=== PATIENT | female | born 1970 | race Caucasian/White ===

== ENCOUNTER 2017-12-17 00:17 | Outpatient (CLI) | payer MEDICAID, SELFPAY ==
[2017-12-17 09:26] LABS: Abs Immature Grans 0.01 k/cumm (0.0-0.09); Absolute Basophil Count 0.02 k/cumm (0.0-0.2); Absolute Eosinophil Count 0.13 k/cumm (0.0-0.7); Absolute Lymphocyte Count 1.46 k/cumm (1.2-3.4); Absolute Monocyte Count 0.49 k/cumm (0.11-0.7); Absolute Neutrophil Count 2.65 k/cumm (1.2-6.7); Basophils % 0.4; Eosinophils % 2.7; HCT 39.9 % (36.0-46.0); HGB 13.2 g/dL (12.0-15.5); Immature Grans % 0.2; Lymphocytes % 30.7; Mean Corp. HGB Concentration 33.1 g/dL (32.0-36.0); Mean Corpuscular Hemoglobin 32.4 pg (27.0-33.0); Mean Corpuscular Volume 97.8 fL (80-95); Mean Platelet Volume 9.9 fL (8.0-11.0); Monocytes % 10.3; Neutrophils % 55.7; Platelet Count 261 x1000/uL (130-400); RBC 4.08 m/cumm (4.00-5.20); RBC Distribution Width 12.2 % (11.7-14.6); White Blood Cell Count 4.76 k/cumm (4.4-10.8)
[2017-12-17 10:29] LABS: Folate 13.1 ng/mL (8.6-20.0)
== END 2017-12-17 00:37 ==
PROVIDERS: PCP Nurse Practitioner Family; Visit Provider Nurse Practitioner Family
DX: D64.9 Anemia, unspecified (principal)
CPT/HCPCS: 36415; 82746; 85025

== ENCOUNTER 2018-03-17 10:08 | Outpatient (REF) | payer MEDICAID, SELFPAY ==
--- NOTE | 2018-03-17 08:40 | PAPFT_PTH ---
PATIENT: Ariana Castaneda LOC: [facility] U#:[id number] AGE/SX: 48/F ROOM: RE03/17/[address]: Dulce Dunlap NP : 1970 BED: DIS: 03/17/2018 SPEC #: [id number] RECD: 03/17/18 17:46 STATUS: ESTEFANIA RESalvatore #: [id number] SIMONA: 03/17/18 08:[address]: Dulce Dunlap NP DEPT: [facility] Cytology RECD BY: Pushpa Smith ENTERED: 03/17/18 17:46 SP TYPE: PAPFT OTHR DR: Marilia Ortega, DIRECTOR ELECTRICAL ENGINEERING Tissues: 1 - CX/ENDOCX FOR PAP SMEARS Procedures: PAP THIN PREP/UVM Screening HPV DNA PROBE Comments: [id number]
== END 2018-03-17 10:28 ==
LOC: LBN 10:08
PROVIDERS: PCP Nurse Practitioner Family; Visit Provider Nurse Practitioner Women's Health
DX: Z12.4 Encounter for screening for malignant neoplasm of cervix (principal); Z11.51 Encounter for screening for human papillomavirus (HPV)
CPT/HCPCS: 88142; 87624

== ENCOUNTER 2018-03-20 15:28 | Outpatient (REF) | payer MEDICAID, SELFPAY ==
[2018-03-23 15:22] LABS: Chlamydia Result Negative; GC Result Negative
== END 2018-03-20 15:48 ==
LOC: LBN 15:28
PROVIDERS: PCP Nurse Practitioner Family; Visit Provider Nurse Practitioner Family
DX: Z11.3 Encounter for screening for infections with a predominantly sexual mode of transmission (principal)
CPT/HCPCS: 87491; 87591

== ENCOUNTER 2018-04-25 00:17 | Outpatient (CLI) | payer MEDICAID, SELFPAY ==
--- NOTE | 2018-04-25 15:59 | DI.MAMMO_ITS ---
SYMPTOM/DIAGNOSIS: SCREENING, Z12.31 MAMMOGRAMS: Mammograms were interpreted according to the usual protocol including computer analysis with CAD system, tomosynthesis and C view imaging. Comparison is made with 2018. The breasts are composed of extremely dense fibroglandular tissue, breast density, category D. No suspicious masses or suspicious microcalcifications are visible. There has been no significant change. IMPRESSION: Category 1, negative mammogram. Yearly screening mammography is recommended. [facility] ASSESSMENT OF FINDINGS: Negative. Category 1. Patient will receive a letter notifying them of these results. BI-RADS category D. The breasts are extremely dense, which lowers the sensitivity of mammography.
== END 2018-04-25 00:37 ==
PROVIDERS: PCP Nurse Practitioner Family; Visit Provider Nurse Practitioner Family
DX: Z12.31 Encounter for screening mammogram for malignant neoplasm of breast (principal)
CPT/HCPCS: 77063; 77067

== ENCOUNTER 2018-10-28 00:35 | Outpatient (CLI) | payer MEDICAID, SELFPAY ==
[2018-10-28 11:29] LABS: ALT 27 U/L (12-78); AST 20 U/L (15-37); Albumin 3.8 g/dL (3.4-5.0); Alkaline Phosphatase 47 U/L (46-116); Anion Gap 11.2 mmol/L (3-11); BUN 17 mg/dL (7-18); Bilirubin, Total 1.4 mg/dL (0.2-1.0); CO2 26.8 mmol/L (21.0-32.0); Calcium 8.4 mg/dL (8.5-10.1); Calculated LDL 88 mg/dL; Chloride 105 mmol/L (98-107); Cholesterol 184 mg/dL (50-200); Glucose 89 mg/dL (70-100); HDL Cholesterol 88 mg/dL (40-60); Potassium 3.8 mmol/L (3.5-5.1); Sodium 143 mmol/L (136-145); Total Protein 6.6 g/dL (6.4-8.2); Triglyceride 43 mg/dL (30-150)
[2018-10-29 13:05] LABS: Hemoglobin A1C 5.3 % (4.5-6.2)
[2018-10-30 13:01] LABS: IgA 101 mg/dL (85-499); Interpretation SEE COMMENTS; Tissue Transglutaminase IgA <1.2 U/mL (<4.0)
== END 2018-10-28 00:55 ==
PROVIDERS: PCP Nurse Practitioner Family; Visit Provider Nurse Practitioner Family
DX: K90.49 Malabsorption due to intolerance, not elsewhere classified (principal); Z00.00 Encounter for general adult medical examination without abnormal findings
CPT/HCPCS: 36415; 80053; 80061; 82784; 83516; 83721; 83036

== ENCOUNTER 2019-04-23 16:30 | Outpatient (REF) | payer MEDICAID, SELFPAY ==
[2019-04-25 13:52] LABS: Chlamydia Result Negative (Negative); GC Result Negative (Negative)
== END 2019-04-23 16:50 ==
LOC: LBN 16:30
PROVIDERS: PCP Nurse Practitioner Family; Visit Provider Nurse Practitioner Women's Health
DX: Z11.3 Encounter for screening for infections with a predominantly sexual mode of transmission (principal)
CPT/HCPCS: 87491; 87591

== ENCOUNTER 2019-04-25 02:10 | Outpatient (CLI) | payer MEDICAID, SELFPAY ==
--- NOTE | 2019-04-25 08:10 | DI.US_ITS ---
EXAM: US PELVIS TRANSVAGINAL CLINICAL HISTORY: AUB, IUD survellience, Z30.431, N93.9. TECHNIQUE: Ultrasound of the pelvic, both abdmonal and tranvaginal was performed using standard prot ocol. COMPARISON: PELVIS TRANSVAG from 01/25/2011 FINDINGS: KIDNEYS: Kidneys are symmetric in size. No evidence of renal calculi. No evidence of hydronephrosis. No renal mass or cyst identified. UTERUS: Position: Anteverted. Size: 8.8 x 4.7 x 5.9 cm Endometrium: 0.3 cm. Normal for patient's menstrual status. There is an intrauterine device in good position. Myometrium: Unremarkable. Cervix: Unremarkable except for small nabothian cysts. OVARIES: Right: 2.3 x 1.9 x 1.4 cm Cyst or mass: Small follicular cysts. Left: 4.5 x 1.5 x 1.8 cm Cyst or mass: Small follicular cysts. DOPPLER: Color: Symmetric and uniform flow to both ovaries. No hyperemia. Duplex: Normal ovarian arterial waveforms visualized. CUL-DE-SAC: Free fluid: None. IMPRESSION: 1. Normal sonographic appearance of the kidneys. 2. Normal-appearing uterus with endometrial stripe within normal limits. Intrauterine device in good position. 3. Unremarkable bilateral ovaries.
[2019-04-25 10:18] LABS: TSH (W/Ref FT4) 1.14 uIU/mL (0.36-3.74)
== END 2019-04-25 02:30 ==
PROVIDERS: PCP Nurse Practitioner Family; Visit Provider Nurse Practitioner Women's Health
DX: N93.9 Abnormal uterine and vaginal bleeding, unspecified (principal); N83.01 Follicular cyst of right ovary; N83.02 Follicular cyst of left ovary; Z30.431 Encounter for routine checking of intrauterine contraceptive device
CPT/HCPCS: 36415; 76830; 76856; 84443

== ENCOUNTER 2019-04-27 02:10 | Outpatient (CLI) | payer MEDICAID, SELFPAY ==
--- NOTE | 2019-04-27 07:45 | DI.MAMMO_ITS ---
EXAM: MAMMO SCREENING CLINICAL HISTORY: Screening, Z12.39 TECHNIQUE: Mammograms were interpreted according to the usual protocol including computer analysis w [employer] CAD system, tomosynthesis and C-view imaging. COMPARISON: April 2018 FINDINGS: Breasts are very dense. No dominant mass or clumped microcalcification is identified in either breas t. Current examination is compared with previous examinations including April 2018 and there has been no gross interval change in appearance in comparison with the previous studies. IMPRESSION: No specific evidence of malignancy at this time. Routine screening examinations are suggested at year ly intervals in this age group according the ACS/ACR guidelines. Category 1, breast density category D. BI-RADS Cat 1 - Negative Breast Density - Category D - Extremely dense
== END 2019-04-27 02:30 ==
PROVIDERS: PCP Nurse Practitioner Family; Visit Provider Nurse Practitioner Women's Health
DX: Z12.31 Encounter for screening mammogram for malignant neoplasm of breast (principal)
CPT/HCPCS: 77063; 77067

== ENCOUNTER 2020-09-01 10:04 | Outpatient (REF) | payer MEDICAID, SELFPAY ==
--- NOTE | 2020-09-01 09:45 | PAPFT_PTH ---
PATIENT: Ariana Castaneda LOC: [facility] U#:[id number] AGE/SX: 50/F ROOM: RE09/01/[address]: KWADWO Chaudhry : 1970 BED: DIS: 09/01/2020 SPEC #: [id number] RECD: 09/01/20 12:34 STATUS: NATArgelia REQ #: [id number] SIMONA: 09/01/20 09:[address]: Esperanza Valentine DEPT: [facility] Cytology RECD BY: Pushpa Smith ENTERED: 09/01/20 12:34 SP TYPE: PAPFT OTHR DR: KWADWO Cannon Tissues: 1 - CX/ENDOCX FOR PAP SMEARS Procedures: PAP THIN PREP/UVM Screening HPV DNA PROBE Comments: [id number]
== END 2020-09-01 10:05 | disposition home or self-care (01) ==
LOC: LBN 10:04
PROVIDERS: PCP Nurse Practitioner Family; Visit Provider Nurse Practitioner Family
DX: Z12.4 Encounter for screening for malignant neoplasm of cervix (principal); Z11.51 Encounter for screening for human papillomavirus (HPV)
CPT/HCPCS: 88142; 87624

== ENCOUNTER 2020-09-29 13:27 | Outpatient (CLI) | payer MEDICAID, SELFPAY ==
--- NOTE | 2020-09-29 12:45 | DI.US_ITS ---
Exam(s) US LOWER EXTREMITY VENOUS LT EXAM: US LOWER EXTREMITY VENOUS LT CLINICAL HISTORY: left lower extremity swelling M79.89 TECHNIQUE: Grayscale, color, and doppler imaging of the deep venous system of the left lower extremi ty was performed. COMPARISON: No exams were available for comparison FINDINGS: There is no evidence of intraluminal thrombus and there is normal compression and augmentation demons trated within the common femoral vein, femoral vein, and popliteal vein. In the ipsilateral calf the interrogated veins also exhibit normal compression/ augmentation properti es. The ipsilateral saphenofemoral junction is patent. On the anterior medial aspect of the calf-area of recent trauma, there is a complex collection measur ing 5.3 x 4.9 x 0.5 cm. Probably hematoma. Adjacent to this is a partially thrombosed varicose vein . IMPRESSION: 1. No evidence of DVT in the left lower extremity. 2. However, there is a partially thrombosed superficially located varicose vein in the region of an abnormal collection on the anteromedial ipsilateral calf, this collection measuring approximately 5.3 x 1.5 x 4.9 cm and probably hematoma. Appropriate follow-up is recommended. DATA REPOSITORY:
== END 2020-09-29 13:47 ==
PROVIDERS: PCP Nurse Practitioner Family; Visit Provider Nurse Practitioner Family
DX: I83.892 Varicose veins of left lower extremity with other complications
CPT/HCPCS: 93971

== ENCOUNTER 2020-11-05 02:03 | Outpatient (CLI) | payer MEDICAID, SELFPAY ==
[2020-11-05 16:05] LABS: Source Nasal/Nares
[2020-11-05 19:43] LABS: COVID-19 PCR Negative (Negative)
== END 2020-11-05 02:04 | disposition home or self-care (01) ==
PROVIDERS: PCP Nurse Practitioner Family; Visit Provider Surgery
DX: Z20.822 Contact with and (suspected) exposure to COVID-19 (principal); Z01.818 Encounter for other preprocedural examination
CPT/HCPCS: 87635

== ENCOUNTER 2020-11-07 10:52 | Day surgery (SDC) | payer MEDICAID, SELFPAY ==
--- NOTE | 2020-11-06 15:07 | W.PM.DSUDISC ---
Discharge Plan Discharge Details Attending Provider: Cristal Ochoa Primary Care Provider: Marilia Ortega Home Meds and New Rx's Prescriptions: No Action levonorgestrel 20 mcg/24 hr (5 years) intrauterine device 1 insert IY ONCE RF: 0 vitamin B complex [B Complex 1] Tablet 1 tab PO DAILY RF: 0 Saccharomyces boulardii [Daily Probiotic (S. boulardii)] 250 mg capsule 250 mg PO BID RF: 0
[2020-11-07 11:00] VITALS: BP 121/74; PULSE 53; RESP 16; TEMP 36.6; O2SAT 100
[2020-11-07] MEDS: Acetaminophen 500 MG TAB 1000 MG PO (11:19)
[2020-11-07] MEDS: Celecoxib 200 MG CAP PO (11:19)
--- NOTE | 2020-11-07 11:31 | W.ANESPRE ---
General Info Date of Service Date Performed: 11/07/20 Height: 5 ft 10 in Weight: 72.3 kg Body Mass Index (BMI): 22.8 Surgical Procedure: Operation Date: 11/07/20 12:10 Proposed Procedures Side Surgeon p Evacuation of Hematoma Left Cristal cOhoa MD Meds Allergies and Home Medications Allergies Allergy/AdvReac Type Severity Reaction Status Date / Time erythromycin base Allergy Severe sob Verified 11/07/20 11:10 latex Allergy Intermediate rash Verified 11/07/20 11:10 lactose AdvReac Intermediate Diarrhea Verified 11/07/20 11:10 Home Medication Medication Instructions Recorded levonorgestrel 20 mcg/24 hours (6 1 insert IY ONCE 03/20/18 yrs) 52 mg intrauterine device vitamin B complex 1 tab PO DAILY 10/18/18 Saccharomyces boulardii 250 mg 250 mg PO BID 11/04/20 capsule Current Visit Medications: Current Medications Generic Name Dose Route Start Last Admin Trade Name Freq PRN Reason Stop Dose Admin Acetaminophen 1,000 mg 11/07/20 06:00 11/07/20 11:19 Acetaminophen 500 Mg Tab PO 11/07/20 16:00 1,000 mg PREOP GITA Administration Celecoxib 200 mg 11/07/20 06:00 11/07/20 11:19 Celecoxib 200 Mg Cap PO 11/07/20 16:00 200 mg PREOP GITA Administration Hyoscyamine Sulfate 0.125 mg 11/06/20 15:06 Hyoscyamine 0.125 Mg Sl/Oral/Chew SL DIRECTED PRN Ringer's Solution 1,000 mls @ 80 mls/hr 11/07/20 06:00 IV 12/06/20 23:59 INFUSION GITA Cefazolin Sodium 2,000 mg/ 100 mls @ 200 mls/hr 11/07/20 06:00 Sodium Chloride IVPB 11/07/20 16:00 PREOP GITA IV Miscellaneous Supplies 1 each 11/07/20 06:00 Iv Access IV 12/06/20 23:59 DIRECTED GITA Ondansetron HCl 4 mg 11/06/20 15:06 Ondansetron 4 Mg/2 Ml Vial IVP Q4H PRN PRN Nausea / Vomiting Sodium Chloride 0 ml 11/07/20 06:00 Normal Saline Flush 10 Ml Syr IV 12/06/20 23:59 PRN PRN Sodium Chloride 0 ml 11/07/20 06:00 Normal Saline 10 Ml Vial IJ 12/06/20 23:59 DIRECTED PRN Sterile Water 0 ml 11/07/20 06:00 Water,Injection,Sterile 10 Ml Vial IJ 12/06/20 23:59 DIRECTED PRN PFSH Active Problems Active Problems: Problem Status Onset Code Hematoma of left lower extremity S80.12XA Gastrointestinal intolerance to foods K90.49 Medical History Medical History Abnormal uterine bleeding Menorrhagia; treated with IUD IUD surveillance Mirena IUD inserted 03/20/18 Surgical History Surgical History History of bilateral tubal ligation S/P MCL repair (~1987) Bilaterally, 1987 and 1989 S/P ovarian cystectomy (~2007) S/P right knee arthroscopy (~2010) S/P tonsillectomy and adenoidectomy Tobacco Smoking/Tobacco Use Status: Former Tobacco Use Tobacco: How many years used: 15 Smokeless tobacco user: chewing tobacco Passive smoking exposure: Yes (Second Hand Smoke) Alcohol Alcohol Intake: current Alcohol intake frequency: a few times a week Alcohol type: hard liquor Substance Use Substance use: Never Substance use type: does not use Prental History History 2 Para 2 Hx # Term Pregnancies Multiple births Hx # Pregnancies Ectopic pregnancies AB induced Hx Number of Living Children 2 AB spontaneous Vital Signs and Lab Results Vital Signs Most Recent Vital Signs in EMR: Most Recent Vital Signs Temp Pulse Resp BP Pulse Ox 36.6 C 53 L 16 121/74 100 11/07/20 11:00 11/07/20 11:00 11/07/20 11:00 11/07/20 11:00 11/07/20 11:00 Lab Results Blood Type / Crossmatch: No Data to Display Complete Blood Count: No Data to Display Complete Metabolic Panel: No Data to Display Liver Function Panel: No Data to Display Coagulation Panel: No Data to Display Cardiac Panel: No Data to Display Arterial Blood Gas: No Data to Display Venous Blood Gas: No Data to Display Pancreas Panel: No Data to Display Thyroid Panel: No Data to Display Infectious Disease: Coronavirus (COVID-19)(PCR) Negative (Negative) 11/05/20 09:28 11/05/20 Coronavirus 2019 Source Nasal/Nares 11/05/20 09:28 11/05/20 Blood Cultures: No Data to Display Toxicology Panel: No Data to Display Panel: No Data to Display Anesthesia Assessment and Plan Anesthesia History Personal History: No History of Anesthesia Complications Family History: No Family History of Anesthesia Complications Exercise Tolerance Exercise Tolerance: Metabolic Equivalents>4 Pertinent Negatives Pertinent Negatives: No Major Cardiovascular Symptoms or Complaints, No Major Pulmonary Symptoms or Complaints, No History of CVA/TIA and Other (Uses lots of Tums, several times a week, always with food. ) Cardiac & Pulmonary Exam Cardiac Exam: Normal S1/S2 Heart Sounds Pulmonary Exam: Clear Bilateral Breath Sounds Airway Exam Known Difficult Airway: No Mallampati Class: 1 Mouth Opening: Normal (> 3cm) Thyromental Distance: Greater than 3 cm Neck Range of Motion: Full ROM Neck Circumference: Normal Teeth Condition: Normal Dentition ASA Classification ASA Score: ASA 2 Emergency Case?: No NPO Status NPO Status: NPO Clears >2 hours, Solids >8 hours Status Status: Negative HCG Anesthesia Plan Resuscitation Status: Full Code Anesthesia Technique: General Anesthesia Airway Planned: Natural Airway Monitors Used: Standard Monitors
[2020-11-07] MEDS: Lactated Ringers 1,000 ML 80 ML IV (11:32)
[2020-11-07 11:34] VITALS: BMI 22.8
[2020-11-07] MEDS: Bupivacaine LIPOSOME/PF 133 MG/10 ML VIAL IJ (12:10)
[2020-11-07] MEDS: ceFAZolin 2,000 MG in Normal Saline 100 ML 200 MG IVPB (12:27)
[2020-11-07] MEDS: Bupivacaine 0.25% Pres-Free 30 ML VIAL (12:30)
[2020-11-07 13:01] VITALS: BP 117/77; PULSE 50; RESP 16; TEMP 36.6; O2SAT 100
--- NOTE | 2020-11-07 13:04 | W.ANESPOSTOP ---
Postoperative Evaluation Date, Time and Location Date Performed: 11/07/20 Time Performed: 13:05 Patient Location: Day Surgery Unit Vital Signs Most Recent Imported Vital Signs: Most Recent Vital Signs Temp Pulse Resp BP Pulse Ox 36.6 C 50 L 16 117/77 100 11/07/20 13:01 11/07/20 13:01 11/07/20 13:01 11/07/20 13:01 11/07/20 13:01 Pain Score Most Recent Pain Score: Most Recent Pain Score Pain Level 4 11/07/20 13:01 Assessment Mental Status: Awake (Alert & Oriented to Patient Baseline) Airway and Respiratory Function: Patent airway with normal (patient baseline) respiratory exam Cardiovascular Function: Hemodynamically Stable Hydration Status: Adequately Hydrated Nausea & Vomiting: No Nausea or Vomiting Pain: Pt. Denies Any Pain Peripheral Nerve Block: Patient did not receive a nerve block
--- NOTE | 2020-11-07 13:06 | W.PM.DSUDISC ---
Discharge Plan Disposition Patient Disposition: HOME Condition: Good Discharge Details Reason For Visit: evacuation of hematoma Attending Provider: Cristal Ochoa Primary Care Provider: Marilia Ortega Home Meds and New Rx's Prescriptions: Continued levonorgestrel 20 mcg/24 hr (5 years) intrauterine device 1 insert IY ONCE RF: 0 vitamin B complex [B Complex 1] Tablet 1 tab PO DAILY RF: 0 Saccharomyces boulardii [Daily Probiotic (S. boulardii)] 250 mg capsule 250 mg PO BID RF: 0 Discharge Instructions Additional Instructions: Activity at Home after surgery: 1. Please take it easy over the weekend and elevate your leg as much as possible. On Tuesday you may go back to regular activities, Rest as much as you are able Diet, Nutrition, & wound healin. As tolerated Pain Medications: 1. Tylenol 650mg every 6 hours as needed and Ibuprofen 600 mg every 6 hours as needed. You may alternate between the 2 medications every 3 hours Dressing- remove dressing on Tuesday morning. Apply a band aid if there is any drainage. Keep clean and dry For Constipation: 1. Take Milk of Magnesia or MiraLax as needed for constipation Other: 1. You may shower daily. Do not scrub the incisions 2. Do not soak the incisions for 1 week 3. You may alternate ice and heat as needed for pain and swelling Wound Care: 1. Keep the incisions clean and dry Please call our office if you develop: 1. Fevers >101.5 2. Nausea or Vomiting 3. Worsening pain 4. Redness and thick discharge from the wounds If after hours please call the Hospital at and ask to speak to the on-call surgeon Referrals: Cristal Ochoa MD [ [facility] STAFF PHYSICIAN] - Activity:: Activity as Tolerated Remove Dressings/Wound Care:: 72 hours Diet:: As Tolerated Discharge Orders Discharge Orders: Discharge Order (Routine); Ordered 11/07/20 Ordered By: Cristal Ochoa
[2020-11-07 13:40] VITALS: BP 136/82; PULSE 51; RESP 16; TEMP 36.2; O2SAT 100
--- NOTE | 2020-11-07 13:54 | W.PM.OP ---
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 She has a 9 x 8 cm hematoma just below the left knee medially. It is tender to palpation. It does not seem infected. As it has not really decreased in size over the last month recommend evacuation of the hematoma in the OR with possible placement of a drain. Risks and benefits and alternatives were reviewed. Alternative treatment would be doing nothing and just waiting for her body to breakdown the blood itself. This may take months. Patient would like to proceed with evacuation of the hematoma. Risks, benefits, complications were reviewed with the patient. Complications include but are not limited to bleeding, infection, injury to the underlying muscle, wound dehiscence, skin necrosis and recurrence. Questions were entertained and answered to her satisfaction and she wished to proceed. No guarantees were given or implied. Proceed with evacuation of left lower extremity hematoma under sedation. Findings: 50 cc of old clotted blood Procedure Description: After informed consent was obtained in the left lower extremity was marked the patient was taken to the operating room and placed in a supine position. The right lower extremity was placed onto a orthopedic bone cushion to elevated. The patient was then sedated by anesthesia. Once sedated and comfortable a timeout was done. The patient's name, date of , allergies to medications, procedure to be done and site, DVT prophylaxis and antibiotic prophylaxis were reviewed. Fire risk was assessed. The left lower extremity was prepped and draped in a sterile surgical fashion. Quarter percent bupivacaine mixed with Exparel was injected over the hematoma. A 3 cm incision was made with a 15 blade. A hemostat was used to open the cavity and about 50 cc of old clotted blood was removed with suction. Bleeding was noted from the skin and this was cauterized. When this did not stop the bleeding both ends of the vein were suture-ligated. The cavity was then irrigated with saline and suctioned. No more bleeding was identified. The subcutaneous tissue was then closed with interrupted 3-0 Vicryl sutures. The dermis was reapproximated with 3-0 Prolene interrupted sutures. The rest of the quarter percent bupivacaine and Exparel were then injected into the dermis and subcutaneous tissue for postoperative pain control. Next the skin was cleaned and dried and Mastisol and Steri-Strips were applied. Once everything was clean a pressure dressing was applied with 4 x 4's Kerlix and Trell wrap. The patient was woken up and taken back to same-day surgery in stable condition. Sponge instrument needle counts were correct at the end of the case. The patient did well and there were no immediate complications.
== END 2020-11-07 14:15 | disposition home or self-care (01) ==
PROVIDERS: PCP Nurse Practitioner Family; Visit Provider Surgery
PROC: (CPT 10140; principal; 2020-11-07 12:00)
DX: S80.12XA Contusion of left lower leg, initial encounter (principal); W21.07XA Struck by softball, initial encounter; Y93.64 Activity, baseball
CPT/HCPCS: 10140; 81025; J0690; J1100; J2001; J2405

== ENCOUNTER 2020-11-19 01:47 | Outpatient (CLI) | payer MEDICAID, SELFPAY ==
--- NOTE | 2020-11-19 06:45 | DI.MAMMO_ITS ---
Exam(s) MAMMO SCREENING EXAM: MAMMO SCREENING CLINICAL HISTORY: screening,Z12.39 TECHNIQUE: Bilateral full field digital CC and MLO mammographic images were obtained with 3D tomosyn thesis and utilizing computer aided detection (CAD). COMPARISON: Available for comparison. FINDINGS: Masses/Architectural Distortion: There is an asymmetry in the posterior central right breast seen on the MLO view. Microcalcifications: No suspicious pleomorphic-type are seen. Skin Thickening/Nipple Retraction: None. IMPRESSION: 1. Asymmetry in the posterior central right breast on the MLO view. 2. Spot compression views requested for further evaluation. Ultrasound may be indicated at that time . BI-RADS Category 0 - Assessment Incomplete: Need additional imaging evaluation Breast Density - Category D - Extremely dense Breast density category C or D implies that the patient has dense breast tissue. Dense breast tissue is very common and is not abnormal but dense breast tissue can make it harder to find cancer on a ma mmogram. Also, dense breast tissue may increase their breast cancer risk. This information about the result of the mammogram report was provided to the patient to raise their awareness. Use this report when you speak with the patient about their risks for breast cancer, which includes their family hist ory. At that time, you may recommend for more screening tests (Ultrasound or MRI) as they might be us eful based on their risk. A negative radiographic report should not delay biopsy if a dominant or clinically suspicious mass is present. Up to ten percent of cancers are not identified on mammography. A negative report may reinforce clinical impression. Adenosis and dense breasts may obscure an underlying neoplasm. False positive reports average 6 to 10%. Patient will receive a letter notifying them of these results.
== END 2020-11-19 02:07 ==
PROVIDERS: PCP Nurse Practitioner Family; Visit Provider Nurse Practitioner Family
DX: Z12.31 Encounter for screening mammogram for malignant neoplasm of breast (principal); S80.12XA Contusion of left lower leg, initial encounter; R92.8 Other abnormal and inconclusive findings on diagnostic imaging of breast; X58.XXXA Exposure to other specified factors, initial encounter
CPT/HCPCS: 77063; 77067

== ENCOUNTER 2020-12-11 00:34 | Outpatient (CLI) | payer MEDICAID, SELFPAY ==
--- NOTE | 2020-12-11 | DI.MAMMO_ITS ---
Exam(s) MG MAMMO SCREEN CALL BACK UNI EXAM: MG MAMMO SCREEN CALL BACK UNI RIGHT COMPLETE RIGHT Breast ultrasound CLINICAL HISTORY: F/U MAMMO, CENTRAL RT BREAST ASYMMETRY. TECHNIQUE: Unilateral spot mammographic images obtained with 3D tomosynthesisand utilizing computer aided detection (CAD). . Complete right breast Ultrasound was also performed, including all 4 quadrants, the retroareolar pretty on, and the ipsilateral axilla. COMPARISON: Prior mammograms were reviewed. This additional imaging was performed due to findings described on the recent screening mammogram of 11/19/2020. FINDINGS: Additional mammographic views performed todayrender this area less concerning. Ultrasound performed today reveals a solitary finding which is at the deep 6 o'clock position. This i s a 3 millimeter benign microcyst. Is doubtful that this corresponds to the finding described on the recent screening mammogram (which appears to compress out on additional mammographic spot compression view performed today). IMPRESSION: No radiographic evidence of malignancy in the right breast. Solitary deep 3 millimeter microcysts seen at 6 o'clock position on ultrasound today. Appropriate follow-up is to keep this patient yearly mammogram schedule, with earlier imaging if a s elf detected breast change is noted.. The patient was informed of these findings and recommendations prior to leaving the department today. BI-RADS Category 2 - Benign Findings Breast Density - Category D - Extremely dense Breast density Category C or D implies that the patient has dense breast tissue. Dense breast tissue can make it harder to find cancer on a mammogram. Dense breast tissue is also associated with an incr eased risk of breast cancer. This information about the result of the mammogram report was provided to the patient to raise their awareness. Use this report when you speak with the patient about their risks for breast cancer, which includes their family history. At that time, you may recommend additional screening tests (Ultrasoun d or MRI) as these tests may add significant information. A negative radiographic report should not delay biopsy if a dominant or clinically suspicious mass is present. Up to ten percent of cancers are not identified on mammography. A negative report may reinforce clinical impression. Adenosis and dense breasts may obscure an underlying neoplasm. False positive reports average 6 to 10%. Patient will receive a letter notifying them of these results.
--- NOTE | 2020-12-11 | DI.US_ITS ---
Exam(s) US BREAST RT COMPLETE EXAM: US BREAST RT COMPLETE CLINICAL HISTORY: Central RT breast asymmetry. TECHNIQUE: Complete ultrasound of the right breast was performed including all 4 quadrants, the retr oareolar region, and the ipsilateral axilla. COMPARISON: Prior mammograms were reviewed. Today's diagnostic right breast mammogram was also revie wed FINDINGS: There is a solitary finding on right breast ultrasound which is a benign 3 millimeter microcysts at t he deep 6 o'clock position. This most probably does not correspond to the finding described on the ma reening mammogram of 11/19/2020 (which appears to compress out on additional spot compression view pe rformed today). No other ultrasound findings in all 4 quadrants nor in the retroareolar region. No significant adenop athy in the ipsilateral right axilla. IMPRESSION: Solitary 3 millimeter microcysts at 6 o'clock position. No solid lesions. Appropriate follow-up is to keep this patient on a yearly mammogram schedule, with earlier imaging if a self detected breast change is noted.. BI-RADS Category 2 - Benign Findings Breast Density - Category D - Extremely dense Breast density Category C or D implies that the patient has dense breast tissue. Dense breast tissue can make it harder to find cancer on a mammogram. Dense breast tissue is also associated with an incr eased risk of breast cancer. This information about the result of the mammogram report was provided to the patient to raise their awareness. Use this report when you speak with the patient about their risks for breast cancer, which includes their family history. At that time, you may recommend additional screening tests (Ultrasoun d or MRI) as these tests may add significant information. A negative radiographic report should not delay biopsy if a dominant or clinically suspicious mass is present. Up to ten percent of cancers are not identified on mammography. A negative report may reinforce clinical impression. Adenosis and dense breasts may obscure an underlying neoplasm. False positive reports average 6 to 10%. Patient will receive a letter notifying them of these results. None
== END 2020-12-11 00:54 ==
PROVIDERS: PCP Nurse Practitioner Family; Visit Provider Nurse Practitioner Family
DX: R92.8 Other abnormal and inconclusive findings on diagnostic imaging of breast (principal); N60.01 Solitary cyst of right breast
CPT/HCPCS: 76642; 77063; 77067

== ENCOUNTER 2021-05-27 03:42 | Outpatient (CLI) | payer MEDICAID, SELFPAY ==
[2021-05-27 09:39] LABS: Source Nasal/Nares
[2021-05-27 14:08] LABS: COVID-19 PCR Negative (Negative)
[2021-05-28 19:02] LABS: Baker's Yeast, IgE <0.35 kU/L; Banana, IgE <0.35 kU/L; Barley, IgE <0.35 kU/L; Beef IgE <0.35 kU/L; Black/White Pepper IgE <0.35 kU/L; Broccoli IgE <0.35 kU/L; Cacao/Cocoa, IgE <0.35 kU/L; Cinnamon, IgE <0.35 kU/L; Corn-Food IgE <0.35 kU/L; Egg Whole IgE <0.10 kU/L; Milk, IgE <0.35 kU/L; Onion, IgE <0.35 kU/L; Soybean IgE <0.35 kU/L; Strawberry, IgE <0.35 kU/L; White Potato, IgE <0.35 kU/L
== END 2021-05-27 03:43 | disposition home or self-care (01) ==
LOC: LBO 03:42
PROVIDERS: PCP Nurse Practitioner Family; Visit Provider Surgery
DX: K90.49 Malabsorption due to intolerance, not elsewhere classified (principal); Z20.822 Contact with and (suspected) exposure to COVID-19
CPT/HCPCS: 36415; 86003; 87635

== ENCOUNTER 2021-05-29 08:55 | Day surgery (SDC) | payer MEDICAID, SELFPAY ==
--- NOTE | 2021-05-28 21:27 | W.COLOREPORT ---
Colonoscopy Report Date of procedure: 05/29/21 Pre-op diagnosis general: crc screen Post-op diagnosis procedure note: other (sigmoidal diverticula/polyp) Surgeon: Anamika Chun Anesthesia Type: General:No Airway Estimated blood loss (mL): 1 Pathology: other Complications: None Disposition: same day Prep: Miralax/Dulcolax Retraction Time: 11 Procedure Description: After informed consent was obtained the patient was taken to the procedure room and placed in a left decubitous position. Monitors were applied and a time out was done. The patients name, date of , procedure, allergies to medications and metal in their body was reviewed. The patient was then sedated. Once sedated and comfortable a rectal exam was done. External exam was normal. Internal exam revealed a normal sphincter tone and no palpable masses. The scope was then introduced and retrofelexed. No internal hemorrhoids were identified. The scope was then advanced to the cecum w/out difficulty. The TI and appendiceal orifice were identified. The prep was bbps?3 in all segments for a total of 9. The scope was then slowly retracted over 11 minutes back into the rectum. Polyps were removed at 20cm-there is a .75 cm flat polyp this is removed with a cold snare. She has a few small scattered diverticula confined to the sigmoid colon. There is no signs of active bleeding or infection. All specimen is retrieved and no bleeding is noted. The scope was removed and the patient was woken up and taken back to Same day surgery in stable condition. The patient tolerated the procedure well and there were no immediate complications. Follow up: The patient should follow up in 5 to 7 years, path pending, years unless they develop changes in bowel habits or other new gastrointestinal complaints.
--- NOTE | 2021-05-28 21:38 | W.PM.ENDDOP ---
Date of service: 05/29/21 Endoscopy Report DATE OF PROCEDURE: 05/29/21 PRE-OP DIAGNOSIS: gerd/poss EoE POST-OP DIAGNOSIS: other (moderate gatritis/hiatal hernia ) SURGEON: Anamika Chun ANESTHESIA TYPE: General:No Airway ESTIMATED BLOOD LOSS: 2 PATHOLOGY: other COMPLICATIONS: None DISPOSITION: same day PREP: Miralax/Dulcolax PROCEDURE DESCRIPTION: After informed consent was obtained the patient was take to the procedure room and placed in a supine position. Monitors were applied and a time out was done. The patients name, date of , procedure type, allergies to medications and metal in their body was reviewed. A bite block was placed and the patient was sedated. Once sedated and comfortable the gastroscope was advanced through the oropharynx which was grossly normal into the esophagus. The proximal and mid-esophagus were nl. In the distal esophagus there was no: Varices, diverticula, or stricture. The scope was advanced into the stomach and through the pylorus into the 3rd portion of the duodenum. The duodenum was noted to be normal. Biopsies were done all specimen is retrieved, and no bleeding is noted.. The scope was retracted back into the stomach and biopsies were done to rule out H. pylori. There were noulcers. There is moderate gastritis radiating out from the antrum in a striped fashion. The scope was retroflexed. The cardia and fundus were noted to be normal. There small 2 cm hiatal [id number]. The scope was retracted back into the esophagus and biopsies were done of the GE junction to rule out Sheth's. The Z line was irregular. The hiatal hernia is at 39. the GE junction was at 37cm. The distal esophagus was biopsied at 35 cm. The scope was removed and the patient was woken up and taken back to [facility] in stable condition. Follow up: 2 weeks for biopsy results
--- NOTE | 2021-05-28 21:42 | PDOC.DSDIS_ITS ---
Discharge Plan Disposition Patient Disposition: HOME Condition: Good Discharge Details Reason For Visit: colon/stomach scope Attending Provider: Anamika Chun Primary Care Provider: Marilia Ortega Home Meds and New Rx's Prescriptions: New pantoprazole [Protonix] 40 mg tablet,delayed release (DR/EC) 40 mg PO DAILY Qty: 90 12RF Continued levonorgestrel 20 mcg/24 hr (5 years) intrauterine device 1 insert IY ONCE 0RF vitamin B complex [B Complex 1] Tablet 1 tab PO DAILY 0RF Saccharomyces boulardii [Daily Probiotic (S. boulardii)] 250 mg capsule 250 mg PO BID 0RF lysine [L-Lysine] 500 mg tablet 500 mg PO DAILY 0RF calcium carbonate [Tums] 200 mg calcium (500 mg) tablet,chewable 200 mg PO QID 0RF acetaminophen 500 mg Tablet 500 mg PO Q6H PRN0RF Discontinued bismuth subsalicylate [Pepto-Bismol] 262 mg/15 mL suspension 524 mg PO Q30-60M PRN0RF Rx Instructions: do not exceed 8 doses in a 24 hour period polyethylene glycol 3350 17 gram/dose powder 238 g PO ONCE Qty: 238 0RF Rx Instructions: take per colonoscopy instructions bisacodyl [Dulcolax (bisacodyl)] 5 mg tablet,delayed release (DR/EC) 5 mg PO ONCE Qty: 4 0RF Rx Instructions: take per colonoscopy instructions Discharge Instructions Additional Instructions: DSU Colonoscopy Post- Op Instructions Instructions for Everyone who is given Anesthesia: For your safety, please do the following for the next twenty-four (24) hours: *Do Not operate a motor vehicle (car, truck, motorcycle, etc.) *Do Not drink alcoholic beverages or use any recreational drugs for the first 24 hours or while taking pain medications. The medications in your body may have a reaction that can be dangerous. *Do Not make any important decisions or sign any important papers. Findings: Moderate gastritis/hiatal hernia/esophagitis Minor sigmoidal diverticula and polyps Follow up:2 repeat colonoscopy in 2wks 5 years time -No ASA/NSAIDs for 24 hours 1. No lifting over 20 pounds or strenuous activity for the first 24 hours after your procedure. After 24 hours there are no restrictions on your activity but you may feel fatigued for a few days. 2. After you arrive home you may have a light meal and return to your normal diet as you can tolerate it without feeling sick to your stomach. 3. You may have a bloated, gaseous feeling in your belly (abdomen) after a colonoscopy. Passing gas and belching will help. Walking or lying down on your left side with your knees flexed may relieve the discomfort. Call the office at [phone] (Office) or [phone] (Hospital) right away if you notice any of the following: a.Vomiting of blood or ?coffee ground stools?. b.Rectal bleeding 1Tbsp, blood clots or continuous bleeding. c.Severe belly (abdominal) pain. d.A hard distended belly (abdomen) and an inability to pass gas. 4. Please don?t expect to have a normal BM (bowel movement) for 2-3 days after your procedure. 5. If there are questions regarding the findings of your procedure, please contact your doctor 6. If you are unable to contact your doctor with a problem, contact the hospital at [phone]. 7. Continue all your regular medications unless directed otherwise. I understand the above instructions and have no questions. Signature of Patient or Adult Escort Name of Responsible Adult Escort Signature of Nurse Date/Time Activity:: see above Diet:: see above Discharge Orders Discharge Orders: Discharge Order (Routine); Ordered 05/28/21 Ordered By: Anamika Chun
[2021-05-29 09:01] VITALS: BP 125/77; PULSE 55; RESP 16; TEMP 36.6; O2SAT 99
--- NOTE | 2021-05-29 09:29 | ANES.PREOP_ITS ---
General Info Date of Service Date Performed: 05/29/21 Height: 5 ft 10 in Weight: 72.6 kg Body Mass Index (BMI): 22.9 Surgical Procedure: Operation Date: 05/29/21 09:50 Proposed Procedure Side Surgeon p Colonoscopy/Gastroscopy Anamika Chun, DO Meds Allergies and Home Medications Allergies Allergy/AdvReac Type Severity Reaction Status Date / Time erythromycin base Allergy Severe sob Verified 05/29/21 09:10 latex Allergy Intermediate rash Verified 05/29/21 09:10 lactose AdvReac Intermediate Diarrhea Verified 05/29/21 09:10 citris AdvReac Intermediate Diarrhea Uncoded 05/29/21 09:10 Home Medication Medication Instructions Recorded levonorgestrel 20 mcg/24 hours (7 1 insert IY ONCE 03/20/18 yrs) 52 mg intrauterine device vitamin B complex (B Complex 1) 1 tab PO DAILY 10/18/18 Saccharomyces boulardii 250 mg 250 mg PO BID 11/04/20 capsule (Daily Probiotic (S. boulardii)) bisacodyl 5 mg tablet,delayed 5 mg PO ONCE #4 tab 05/18/21 release (Dulcolax (bisacodyl)) bismuth subsalicylate 262 mg/15 mL 524 mg PO Q30-60M PRN 05/18/21 oral suspension (Pepto-Bismol) calcium carbonate 200 mg calcium 200 mg PO QID 05/18/21 (500 mg) chewable tablet (Tums) lysine 500 mg tablet (L-Lysine) 500 mg PO DAILY 05/18/21 polyethylene glycol 3350 17 238 g PO ONCE #238 g 05/18/21 gram/dose oral powder acetaminophen 500 mg tablet 500 mg PO Q6H PRN 05/29/21 Current Visit Medications: Current Medications Generic Name Dose Route Start Last Admin Trade Name Freq PRN Reason Stop Dose Admin Hyoscyamine Sulfate 0.125 mg 05/28/21 21:25 Hyoscyamine 0.125 Mg Sl/Oral/Chew SL DIRECTED PRN Ringer's Solution 1,000 mls @ 80 mls/hr 05/29/21 06:00 IV 06/18/21 23:59 INFUSION GITA IV Miscellaneous Supplies 1 each 05/29/21 06:00 Iv Access IV 06/18/21 23:59 DIRECTED [facility] Ondansetron HCl 4 mg 05/28/21 21:25 Ondansetron 4 Mg/2 Ml Vial IVP Q4H PRN PRN Nausea / Vomiting Sodium Chloride 0 ml 05/29/21 06:00 Normal Saline Flush 10 Ml Syr IV 06/18/21 23:59 PRN PRN Sodium Chloride 0 ml 05/29/21 06:00 Normal Saline 10 Ml Vial IJ 06/18/21 23:59 DIRECTED PRN Sterile Water 0 ml 05/29/21 06:00 Water,Injection,Sterile 10 Ml Vial IJ 06/18/21 23:59 DIRECTED PRN PFSH Active Problems Active Problems: Problem Status Onset Code Allergic dermatitis L23.9 Chronic diarrhea K52.9 GERD (gastroesophageal reflux disease) K21.9 Lactose intolerance E73.9 Food allergy Z91.018 Asthma J45.909 Hematoma of left lower extremity S80.12XA Gastrointestinal intolerance to foods K90.49 Surgical History Surgical History History of bilateral tubal ligation S/P MCL repair (~1987) Bilaterally, 1987 and 1989 S/P ovarian cystectomy (~2007) S/P right knee arthroscopy (~2010) S/P tonsillectomy and adenoidectomy Tobacco Smoking/Tobacco Use Status: Former Tobacco Use Smokeless tobacco user: chewing tobacco Passive smoking exposure: Yes (Second Hand Smoke) Alcohol Alcohol Intake: current Alcohol intake frequency: a few times a week Alcohol type: hard liquor Substance Use Substance use: Never Substance use type: does not use Prental History History 2 Para 2 Hx # Term Pregnancies Multiple births Hx # Pregnancies Ectopic pregnancies AB induced Hx Number of Living Children 2 AB spontaneous Vital Signs and Lab Results Vital Signs Most Recent Vital Signs in EMR: Most Recent Vital Signs Temp Pulse Resp BP Pulse Ox 36.6 C 55 L 16 125/77 99 05/29/21 09:01 05/29/21 09:01 05/29/21 09:01 05/29/21 09:01 05/29/21 09:01 Lab Results Blood Type / Crossmatch: No Data to Display Complete Blood Count: No Data to Display Complete Metabolic Panel: No Data to Display Liver Function Panel: No Data to Display Coagulation Panel: No Data to Display Cardiac Panel: No Data to Display Arterial Blood Gas: No Data to Display Venous Blood Gas: No Data to Display Pancreas Panel: No Data to Display Thyroid Panel: No Data to Display Infectious Disease: Coronavirus (COVID-19)(PCR) Negative (Negative) 05/27/21 08:33 05/27/21 Coronavirus 2019 Source Nasal/Nares 05/27/21 08:33 05/27/21 Blood Cultures: No Data to Display Toxicology Panel: No Data to Display Panel: No Data to Display Anesthesia Assessment and Plan Anesthesia History Personal History: PONV Family History: No Family History of Anesthesia Complications Exercise Tolerance Exercise Tolerance: Metabolic Equivalents>4 Pertinent Negatives Pertinent Negatives: No Symptoms of GERD Cardiac & Pulmonary Exam Cardiac Exam: Normal S1/S2 Heart Sounds Pulmonary Exam: Clear Bilateral Breath Sounds Implantable Cardiac Device Does patient have a Pacemaker or an ICD?: No Airway Exam Known Difficult Airway: No Mallampati Class: 1 Mouth Opening: Normal (> 3cm) Thyromental Distance: Greater than 3 cm Neck Range of Motion: Full ROM Neck Circumference: Normal Teeth Condition: Normal Dentition ASA Classification ASA Score: ASA 2 Emergency Case?: No NPO Status NPO Status: NPO Clears >2 hours, Solids >8 hours Status Status: Negative HCG Anesthesia Plan Resuscitation Status: Full Code Anesthesia Technique: General Anesthesia Airway Planned: Natural Airway Monitors Used: Standard Monitors
[2021-05-29] MEDS: Lactated Ringers 1,000 ML 80 ML IV (09:31)
[2021-05-29 09:36] VITALS: BMI 22.9
--- NOTE | 2021-05-29 09:56 | BOWEL_PTH ---
PATIENT: Ariana Castaneda LOC: [facility] U#:[id number] AGE/SX: 51/F ROOM: RE05/29/[address]: Anamika Chun : 1970 BED: DIS: 05/29/2021 SPEC #: [id number] RECD: 05/29/21 12:39 STATUS: ESTEFANIA RESalvatore #: [id number] SIMONA: 05/29/21 09:[address]: Anamika Chun DEPT: Surgical Specimen RECD BY: Pushpa Smith ENTERED: 05/29/21 12:44 SP TYPE: Bowel OTHR DR: Marilia Ortega, [employer] Tissues: 1 - BIOPSY BOWEL 2 - BIOPSY BOWEL 3 - STOMACH BIOPSY 4 - STOMACH BIOPSY 5 - ESOPHAGUS BIOPSY 6 - HERNIA SAC,OTHER 7 - ESOPHAGUS BIOPSY 8 - ESOPHAGUS BIOPSY 9 - BIOPSY BOWEL Procedures: GROSS AND MICRO LEVEL 4 Comments: [id number]
--- NOTE | 2021-05-29 10:37 | W.ANESPOSTOP ---
Postoperative Evaluation Date, Time and Location Date Performed: 05/29/21 Time Performed: 10:40 Patient Location: Day Surgery Unit Vital Signs Most Recent Imported Vital Signs: Most Recent Vital Signs Temp Pulse Resp BP Pulse Ox 36.6 C 55 L 16 125/77 99 05/29/21 09:01 05/29/21 09:01 05/29/21 09:01 05/29/21 09:01 05/29/21 09:01 Most Recent Manually Entered Vital Signs: Adult Blood Pressure: 113/71 Heart Rate: 47 Respirations: 16 Oxygen Saturation (%): 100 Temperature (C): 36.2 C Pain Score (0-10 Scale): 0 Pain Score Most Recent Pain Score: Most Recent Pain Score Pain Level 0 05/29/21 09:01 Assessment Mental Status: Arousable with meaningful communication Airway and Respiratory Function: Patent airway with normal (patient baseline) respiratory exam Cardiovascular Function: Hemodynamically Stable Hydration Status: Adequately Hydrated Nausea & Vomiting: No Nausea or Vomiting Pain: Pt. Denies Any Pain Peripheral Nerve Block: Patient did not receive a nerve block
[2021-05-29 10:38] VITALS: BP 113/71; PULSE 47; RESP 16; TEMPC 36.2; O2SAT 100
[2021-05-29 10:40] VITALS: BP 113/71; PULSE 50; RESP 18; TEMP 36.5; O2SAT 100
[2021-05-29 11:09] VITALS: BP 111/78; PULSE 50; RESP 16; TEMP 36.5; O2SAT 100
== END 2021-05-29 12:15 | disposition home or self-care (01) ==
PROVIDERS: PCP Nurse Practitioner Family; Visit Provider Surgery
PROC: (CPT 45385; principal; 2021-05-29 09:45)
DX: K21.9 Gastro-esophageal reflux disease without esophagitis (principal); K52.9 Noninfective gastroenteritis and colitis, unspecified; E73.9 Lactose intolerance, unspecified; K29.70 Gastritis, unspecified, without bleeding; K44.9 Diaphragmatic hernia without obstruction or gangrene; K57.30 Diverticulosis of large intestine without perforation or abscess without bleeding; K63.5 Polyp of colon; K22.89 Other specified disease of esophagus; K63.89 Other specified diseases of intestine
CPT/HCPCS: 45385; 43239; 81025; 88305; 88302

== ENCOUNTER → 2021-11-24 00:55 | Outpatient (CLI) | payer MEDICAID, SELFPAY ==
--- NOTE | 2021-11-24 07:00 | DI.MAMMO_ITS ---
Exam(s) MAMMO SCREENING EXAM: MAMMO SCREENING CLINICAL HISTORY: screening,Z12.39 TECHNIQUE: Bilateral full field digital CC and MLO mammographic images were obtained with 3D tomosyn thesis and utilizing computer aided detection (CAD). COMPARISON: Available for comparison. FINDINGS: Masses/Architectural Distortion: None seen. Microcalcifications: No suspicious pleomorphic-type are seen. Skin Thickening/Nipple Retraction: None. IMPRESSION: 1. No significant interval change with no specific features of malignancy noted. 2. Unless there is more urgent need, screening mammography is recommended, as per [employer] guidelines. BI-RADS Category 1 - Negative Breast Density - Category D - Extremely dense Breast density category C or D implies that the patient has dense breast tissue. Dense breast tissue is very common and is not abnormal but dense breast tissue can make it harder to find cancer on a ma mmogram. Also, dense breast tissue may increase their breast cancer risk. This information about the result of the mammogram report was provided to the patient to raise their awareness. Use this report when you speak with the patient about their risks for breast cancer, which includes their family hist ory. At that time, you may recommend for more screening tests (Ultrasound or MRI) as they might be us eful based on their risk. A negative radiographic report should not delay biopsy if a dominant or clinically suspicious mass is present. Up to ten percent of cancers are not identified on mammography. A negative report may reinforce clinical impression. Adenosis and dense breasts may obscure an underlying neoplasm. False positive reports average 6 to 10%. Patient will receive a letter notifying them of these results.
== END ==
PROVIDERS: PCP Nurse Practitioner Family; Visit Provider Nurse Practitioner Family
DX: Z12.31 Encounter for screening mammogram for malignant neoplasm of breast (principal); R92.8 Other abnormal and inconclusive findings on diagnostic imaging of breast
CPT/HCPCS: 77063; 77067

== ENCOUNTER → 2022-11-25 03:00 | Outpatient (CLI) | payer MEDICAID, SELFPAY ==
--- NOTE | 2022-11-25 07:15 | DI.MAMMO_ITS ---
Exam(s) MAMMO SCREENING EXAM: MAMMO SCREENING CLINICAL HISTORY: screening,z12.39. TECHNIQUE: Bilateral full field digital CC and MLO mammographic images were obtained with 3D tomosyn thesis and utilizing computer aided detection (CAD). COMPARISON: Prior mammograms were reviewed. Also reviewed prior ultrasound examination of November 2020. FINDINGS: There has been no significant change in the appearance and distribution of the fibroglandular tissue. The fibroglandular tissue is again noted be quite dense bilaterally, this decreasing the sensitivity of the mammogram for finding hidden underlying lesions. There are no CAD designations. There are no new spiculated masses nor malignant appearing microcalcification groups. There is no significant architectural distortion nor skin thickening-retraction. IMPRESSION: Very dense bilateral fibroglandular tissue. No obvious radiographic evidence of malignancy. BI-RADS Category 2 - Benign Findings Breast Density - Category D - Extremely dense Breast density Category C or D implies that the patient has dense breast tissue. Dense breast tissue can make it harder to find cancer on a mammogram. Dense breast tissue is also associated with an incr eased risk of breast cancer. This information about the result of the mammogram report was provided to the patient to raise their awareness. Use this report when you speak with the patient about their risks for breast cancer, which includes their family history. At that time, you may recommend additional screening tests (Ultrasoun d or MRI) as these tests may add significant information. A negative radiographic report should not delay biopsy if a dominant or clinically suspicious mass is present. Up to ten percent of cancers are not identified on mammography. A negative report may reinforce clinical impression. Adenosis and dense breasts may obscure an underlying neoplasm. False positive reports average 6 to 10%. Patient will receive a letter notifying them of these results.
== END ==
PROVIDERS: PCP Nurse Practitioner Family; Visit Provider Nurse Practitioner Family
DX: Z12.31 Encounter for screening mammogram for malignant neoplasm of breast (principal); R92.2 Inconclusive mammogram
CPT/HCPCS: 77063; 77067

== ENCOUNTER 2022-11-25 04:18 | Outpatient (CLI) | payer MEDICAID, SELFPAY ==
[2022-11-25 09:19] LABS: Anion Gap 8.3 mmol/L (3-11); BUN 11 mg/dL (7-18); CO2 30.7 mmol/L (21.0-32.0); CREATININE 0.9 mg/dL (0.55-1.02); Calcium 8.7 mg/dL (8.5-10.1); Calculated LDL 77 mg/dL (<100); Chloride 104 mmol/L (98-107); Cholesterol 202 mg/dL (<200); Estimated GFR 76.92 (mL/min/1.73m2); Glucose 93 mg/dL (74-106); HDL Cholesterol 116 mg/dL (40-60); Potassium 3.4 mmol/L (3.5-5.1); Sodium 143 mmol/L (136-145); Triglyceride 48 mg/dL (<150)
== END 2022-11-25 04:19 | disposition home or self-care (01) ==
LOC: LBO 04:18
PROVIDERS: PCP Nurse Practitioner Family; Visit Provider Nurse Practitioner Family
DX: Z00.00 Encounter for general adult medical examination without abnormal findings (principal)
CPT/HCPCS: 36415; 80048; 80061

== ENCOUNTER 2023-09-10 13:12 | Emergency (ER) | payer MEDICAID, SELFPAY ==
[2023-09-10] VITALS (44 sets, daily range): BP systolic 128–170; BP diastolic 64–91; PULSE 40–56; RESP 7–23; TEMP 36.8; O2SAT 100
--- NOTE | 2023-09-10 13:00 | RT.EKG_ITS ---
APPROVED REPORT Exam: Resting ECG Reason for Exam: chest pain Patient Location: E HR:50 bpm ECG Measurements Heart Rate 50 AXIS TN 140 P 20 QRSd 88 QRS 50 QT 470 T 53 QTc 429 Conclusion Sinus bradycardia...rate< 60 sinus bradycardia, normal axis, normal intervals, non ischemic
--- NOTE | 2023-09-10 13:32 | ED.GENADUL_ITS ---
Discharge Plan Discharge Details Chief Complaint: Chest Pain Primary Care Provider: Marilia Ortega ED Provider: Craig Clark Home Meds and New Rx's Prescriptions: No Action levonorgestrel 20 mcg/24 hr (5 years) intrauterine device 1 insert IY ONCE vitamin B complex [B Complex 1] Tablet 1 tab PO DAILY Zyrtec 10 mg capsule 10 mg PO DAILY PRN Saccharomyces boulardii [Daily Probiotic (S. boulardii)] 250 mg capsule 250 mg PO BID lysine [L-Lysine] 500 mg tablet 500 mg PO DAILY calcium carbonate [Tums] 200 mg calcium (500 mg) tablet,chewable 200 mg PO QID pantoprazole [Protonix] 40 mg tablet,delayed release (DR/EC) 40 mg PO DAILY Qty: 90 3RF epinephrine 0.3 mg/0.3 mL auto-injector 0.3 ml IM Q5-15M PRN (Reason: hypersensitivity reaction) Qty: 2 4RF albuterol sulfate 90 mcg/actuation HFA aerosol inhaler 2 puff inhalation Q6H PRN (Reason: shortness of breath or wheezing) Qty: 6.7 0RF (DME) Aerochamber MV Spacer See Rx Instructions .Route Qty: 1 0RF Rx Instructions: As directed HPI General Date/Time Provider Initiated Documentation: 09/10/23 13:23 . HPI Narrative: 53-year-old female presents with acute onset anterior chest pain sharp in nature rating to left shoulder blade worse with deep breath, denies history of coronary disease or thromboembolic disease no recent travel immobilization or surgery no recent trauma. Does endorse cough over the last couple of weeks as well as some social stressors at home Related Data Home Medications Medication Instructions Recorded Confirmed levonorgestrel 21 mcg/24 hr (up to 1 insert intrauterine ONCE 03/20/18 09/10/23 8 years) 52 mg intrauterine device vitamin B complex (B Complex 1 1 tab PO DAILY 10/18/18 09/10/23 tablet) Saccharomyces boulardii 250 mg 250 mg PO BID 11/04/20 09/10/23 capsule (Daily Probiotic (S. boulardii)) calcium carbonate (Tums) 200 mg PO QID 05/18/21 09/10/23 lysine 500 mg tablet (L-Lysine) 500 mg PO DAILY 05/18/21 09/10/23 cetirizine 10 mg capsule (Zyrtec) 10 mg PO DAILY PRN 06/11/21 09/10/23 epinephrine 0.3 mg/0.3 mL 0.3 ml IM Q5-15M PRN 11/03/22 09/10/23 injection, auto-injector hypersensitivity reaction #2 ea pantoprazole 40 mg tablet,delayed 40 mg PO DAILY #90 tabs 11/03/22 09/10/23 release (Protonix) albuterol sulfate 90 mcg/actuation 2 puff inhalation Q6H PRN 06/28/23 09/10/23 aerosol inhaler shortness of breath or wheezing #6.7 grams inhalational spacing device #1 ea 06/28/23 09/10/23 (Aerochamber MV spacer) Previous Rx's Medication Instructions Recorded epinephrine 0.3 mg/0.3 mL 0.3 ml IM Q5-15M PRN 11/03/22 injection, auto-injector hypersensitivity reaction #2 ea pantoprazole 40 mg tablet,delayed 40 mg PO DAILY #90 tabs 11/03/22 release (Protonix) albuterol sulfate 90 mcg/actuation 2 puff inhalation Q6H PRN 06/28/23 aerosol inhaler shortness of breath or wheezing #6.7 grams inhalational spacing device #1 ea 06/28/23 (Aerochamber MV spacer) Allergies Allergy/AdvReac Type Severity Reaction Status Date / Time erythromycin base Allergy Severe sob Verified 09/10/23 13:23 latex Allergy Intermediate rash Verified 09/10/23 13:23 lactose AdvReac Intermediate Diarrhea Verified 09/10/23 13:23 citris AdvReac Intermediate Diarrhea Uncoded 09/10/23 13:23 General Stated Complaint: Chest Pain JACIEL: 2 Review of Systems Narrative: Review of Systems Constitutional: negative Eyes: negative ENT: negative Cardiovascular: Chest pain Respiratory: negative Gastrointestinal: negative : negative Musculoskeletal: negative Skin: negative Neurologic: negative Psych: negative Exam Narrative Exam Narrative: Physical Examination General: alert, awake, cooperative HEENT: normocephalic, atraumatic; PERRL, EOM intact, conjunctiva normal; no nasal discharge; moist mucous membranes, oral and pharyngeal mucosa normal, tolerating secretions Neck: supple, trachea midline; full ROM Chest: normal to inspection Respiratory: normal respiratory effort, speaking in full sentences, clear to auscultation, no wheezing, rales or rhonchi Cardiac: regular rate, regular rhythm, S1S2 intact, no murmurs rubs or gallops GI: abdomen soft, non-tender, non-distended; no palpable mass or hepatosplenomegaly Skin: no lesions, rashes or trauma appreciated Neuro: AAOx3, normal speech, moving all extremities Extremities: No peripheral edema Psych: Appropriate mood and affect Course Vital Signs Vital signs: Vital Signs Temperature 36.8 C 09/10/23 13:17 Pulse 55 L 09/10/23 13:17 Blood Pressure 169/71 H 09/10/23 13:17 Pulse Oximetry 100 09/10/23 13:17 Temperature 36.8 C 09/10/23 13:17 Temperature Source Oral 09/10/23 13:17 Pulse 55 L 09/10/23 13:17 Blood Pressure 169/71 H 09/10/23 13:17 Blood Pressure Position Supine 09/10/23 13:17 Pulse Oximetry 100 09/10/23 13:17 Oxygen Delivery Method Room Air 09/10/23 13:17 Oxygen Flow Rate 0 09/10/23 13:17 Pain Level 0 09/10/23 13:17 Medical Decision Making 53-year-old female presents with anterior chest pain sharp in nature rating to left shoulder blade, worse with deep breath, acute onset this afternoon approximately 1 hour before arrival, no nausea no diaphoresis no shortness of breath no tachypnea no hypoxia, lungs clear bilaterally, no peripheral edema no thromboembolic risk factors or history of coronary disease, does endorse recent cough over the past couple of months, consider pleurisy versus pneumonia versus costochondritis versus ACS versus must consider PE lower suspicion for aortic pathology must also consider pneumothorax. Will provide aspirin, analgesia, will obtain basic labs CT chest EKG sinus bradycardia without ischemic changes. Disposition pending reassessment and results 16: 34 improved symptomatology after medication. Patient does have sensation of reflux consider gastritis. For troponin negative awaiting second troponin. Relative bradycardia however patient endorses she frequently has a pulse in the 50s is fit and active consider component of vagal tone increased with nausea leading to further bradycardia. Sinus on the monitor. Alert oriented interactive no deficits no respiratory distress. Pending results of second troponin and CT scan consider home Quality:SDOH Health Related Social Needs: No Data to Display [facility] All Active Problems Hiatal hernia with GERD (Chronic) Allergic dermatitis (Chronic) Chronic diarrhea (Chronic) GERD (gastroesophageal reflux disease) (Chronic) Lactose intolerance (Chronic) Food allergy (Chronic) IUD surveillance (Chronic) Mirena IUD inserted 03/20/18 Medical History Asthma Abnormal uterine bleeding Menorrhagia; treated with IUD Surgical History History of colonoscopy with polypectomy (05/29/21) History of esophagogastroduodenoscopy (EGD) (05/29/21) History of bilateral tubal ligation S/P ovarian cystectomy (~2007) S/P MCL repair (~1987) Bilaterally, 1987 and 1989 S/P right knee arthroscopy (~2010) S/P tonsillectomy and adenoidectomy Family History Mother Hyperthyroidism Atrial fibrillation Father Hyperlipidemia Hypertension Heart disease Depression Sister No problems noted. Sister No problems noted. Daughter ADHD Epilepsy Daughter Depression Maternal Grandfather , at 79 of PA Heart disease Myocardial infarction Maternal Grandmother , at 67 of stroke Stroke Hyperthyroidism Atrial fibrillation Paternal Grandfather , at 63 of leukemia Leukemia Paternal Grandmother No problems noted. Social History Smoking/Tobacco Use Status: Former Tobacco Use Quit Date: 03/21/98 Tobacco: How many years used: 15 Smokeless tobacco user: chewing tobacco Smoking risk assessment performed?: Yes Alcohol Intake: current Alcohol Intake frequency: a few times a week Alcohol type: hard liquor Drug use: Never Substance use type: does not use Caregiver/Support person: No Household members: family and children Housing: house Communication Needs: None Do you need help understanding health information?: Never Pets and animals: Yes Pets and animals: horse(s) and other Details: Rabbits Sexually active: No Do you think of yourself as: straight/heterosexual Current gender identity: female What is your relationship status?: How often do you talk on the phone with friends or family?: three or more times per week How often do you get together with friends or relatives?: twice per week How often do you attend baptism or confucianism services?: decline to answer Do you belong to any clubs or organized social groups?: yes Panel score (0-1 are the most socially isolated patients): 2 What type of physical activity do you participate in: walking and other Details: Pasture horses Duration: 30-45 minutes/day Frequency: daily Brianda/Church: No preference Special brianda needs: No Seatbelt use: always Helmet use: Yes Helmet use: always Drive intox or ride w/intox corrugated fastener driver: No Do you feel safe at home: Yes Do you feel safe in your relationship?: Yes Female Reproductive History Menstrual control method: progestin IUCD and permanent sterilization History History 2 Para 2 Hx # Term Pregnancies Multiple births Hx # Pregnancies Ectopic pregnancies AB induced Hx Number of Living Children 2 AB spontaneous
[2023-09-10 13:41] LABS: Abs Immature Grans 0.01 10^3/uL (0.0-0.06); Absolute Basophil Count 0.04 10^3/uL (0.0-0.2); Absolute Eosinophil Count 0.36 10^3/uL (0.0-0.7); Absolute Lymphocyte Count 2.03 10^3/uL (1.2-3.4); Absolute Monocyte Count 0.49 10^3/uL (0.1-0.8); Basophils % 0.6 %; HCT 39.5 % (36.0-46.0); HGB 13.3 g/dL (11.2-15.7); Immature Grans % 0.1 %; Lymphocytes % 28.5 %; MCHC 33.7 % (32.0-36.0); MCV 98 fL (80-95); MPV 9.8 fL (8.0-11.0); Monocytes % 6.9 %; Neutrophils % 58.9 %; Platelet Count 252 10^3/uL (130-400); RBC 4.03 10^6/uL (3.93-5.22); RDW 12.2 % (11.7-14.6); RDW-SD 44.5 fL; WBC 7.13 10^3/uL (4.4-10.8)
[2023-09-10] MEDS: Ketorolac 15 MG/ML VIAL IVP (13:41)
[2023-09-10] MEDS: Aspirin 81 MG CHEW 324 MG CH (13:41)
[2023-09-10 13:50] LABS: INR 1.1 (0.9-1.1); PTT Activated 25.9 sec (23.6-32.8); Prothrombin Time 10.7 sec (9.1-11.1)
[2023-09-10] MEDS: Ondansetron 4 MG/2 ML VIAL IVP (14:00)
[2023-09-10 14:01] LABS: ALT 36 U/L (14-59); AST 33 U/L (15-37); Albumin 4.2 g/dL (3.4-5.0); Alkaline Phosphatase 60 U/L (46-116); Anion Gap 9.9 mmol/L (3-11); BUN 18 mg/dL (7-18); Bilirubin, Total 0.92 mg/dL (0.2-1.0); CO2 28.1 mmol/L (21.0-32.0); CREATININE 0.9 mg/dL (0.55-1.02); Calcium 8.9 mg/dL (8.5-10.1); Chloride 106 mmol/L (98-107); Estimated GFR 76.44 (mL/min/1.73m2); Glucose 89 mg/dL (74-106); Magnesium 1.8 mg/dL (1.8-2.4); NT-proBNP 91 pg/mL (<300); Potassium 3.7 mmol/L (3.5-5.1); Sodium 144 mmol/L (136-145); TSH (W/Ref FT4) 1.74 uIU/mL (0.36-3.74); Total Protein 7.5 g/dL (6.4-8.2); Troponin I < 50 ng/L (< or =60)
[2023-09-10] MEDS: Lidocaine 2% Viscous 15 ML CUP (14:14)
--- NOTE | 2023-09-10 14:30 | DI.CT_ITS ---
Exam(s) CT CHEST PE ABD PELVIS W EXAM: CT CHEST PE ABD PELVIS W CLINICAL HISTORY: pleuritic chest pain to L shoulder, nausea vomitin. TECHNIQUE: Imaging Protocol: Axial computed tomography images with coronal and sagittal reformatted images were created and reviewed CONTRAST MATERIAL: Intravenous: Omnipaque 350 Contrast volume:100 ml Oral: no COMPARISON: CT ABD PELVIS WITH CONTRAST from 06/13/2007 FINDINGS: CHEST: Tracheobronchial tree: Patent. Pulmonary parenchyma: No consolidation or dominant measurable mass. Pleura: No effusion or pneumothorax. Lymph nodes: Within normal limits. Aorta: Thoracic portion non-dilated. Pulmonary arteries: Well opacified. No evidence of emboli. Heart: No pericardial effusion. Bones: Mild scoliosis. No lytic or blastic lesions.No compression fractures. Soft tissues: Unremarkable. ABDOMEN and PELVIS: Liver: Liver mildly enlarged, with elongated right lobe. Hepatic veins not yet opacified with IV con trast. IVC somewhat dilated. Mild periportal edema. Findings may be secondary to aggressive IV hyd ration. Normal density. No measurable mass. Gallbladder and biliary tract: No evidence of stones or wall thickening. No biliary dilatation. Pancreas: Normal density, no abnormal calcifications or inflammatory process. Spleen: Normal. Kidneys: Normal size, contour and axis. No radiodense stones. No obstructive uropathy. No suspicious masses seen. Adrenal glands: No masses seen. Aorta: Abdominal portion non-dilated. Lymph nodes: Within normal limits. Soft tissues: Unremarkable. Bladder: Unremarkable. Bowel: No obstruction or bowel wall thickening. Normal quantity of stool. Peritoneal cavity: Evaluation limited due to lack of intra-abdominal fat. No ascites. No focal aniya ection. No mesenteric inflammatory response. Bones: Unremarkable for age. Reproductive organs: IUD. IMPRESSION: No acute abnormality in the chest, abdomen or pelvis.. Mild periportal edema may be secondary to aggressive IV hydration. RADIATION DOSE DELIVERED: Total DLP DATA REPOSITORY: All CT scans at this facility are submitted to the National Radiology Data Registry (NRDR) Dose Index Registry (DIR) with the [employer] (ACR). RADIATION OPTIMIZATION: All CT scans at this facility use at least one of these dose optimization te chniques: automated exposure control; mA and/or kV adjustment per patient size (includes targeted exa ms where dose is matched to clinical indication); or iterative reconstruction.
[2023-09-10] MEDS: Normal Saline Flush 10 ML SYR IVP (14:41)
[2023-09-10] MEDS: Normal Saline - Diluent 50 ML VIAL IJ (14:41)
[2023-09-10] MEDS: Omnipaque 350 MG/ML 100 ML BTL IJ (14:42)
[2023-09-10] MEDS: Normal Saline 1,000 ML 1000 ML IV (14:42)
[2023-09-10] MEDS: Famotidine 20 MG/2 ML VIAL IVP (15:21)
[2023-09-10] MEDS: Normal Saline 50 ML (15:21)
[2023-09-10 16:57] LABS: Troponin I < 50 ng/L (< or =60)
--- NOTE | 2023-09-10 17:18 | DI.VRAD_ITS ---
PROCEDURE INFORMATION: Exam: CTA Chest With Contrast CTA Abdomen With Contrast Exam date and time: 09/10/2023 3:01 PM Age: 53 years old Clinical indication: Other: Pleuritic chest pain to L shoulder, nausea vomitin TECHNIQUE: Imaging protocol: Computed tomographic angiography of the chest with contrast. Exam focused on the arteries. Computed tomographic angiography of the abdomen with contrast. Exam focused on the arteries. 3D rendering (Not supervised by radiologist): MIP and/or 3D reconstructed images were created by the technologist. Contrast material: 350; Contrast volume: 100 ml; Contrast route: INTRAVENOUS (IV); COMPARISON: No relevant prior studies available. FINDINGS: VASCULATURE: Pulmonary arteries: Normal. No pulmonary emboli. Aorta: No aortic aneurysm. No aortic dissection. Celiac trunk and mesenteric arteries: No occlusion or significant stenosis. Renal arteries: No occlusion or significant stenosis. CHEST: Lungs: Calcified granuloma right lung base. Pleural spaces: Unremarkable. No pneumothorax. No pleural effusion. Heart: Unremarkable. No cardiomegaly. No pericardial effusion. ABDOMEN AND PELVIS: Liver: Mild diffuse periportal edema. Mild hepatomegaly. Small benign cyst inferior right hepatic lobe. Gallbladder and biliary ducts: Unremarkable. No calcified stones. No ductal dilation. Pancreas: Unremarkable. No mass. No ductal dilation. Spleen: Unremarkable. No splenomegaly. Adrenal glands: Unremarkable. No mass. Kidneys and ureters: Unremarkable. No solid mass. No hydronephrosis. Stomach and bowel: Large amount of stool in the colon. Intraperitoneal space: Small amount of free fluid in the pelvis. Mild mesenteric edema. Reproductive: IUD. Lymph nodes: Unremarkable. No enlarged lymph nodes. Bones/joints: Mild degenerative arthritis in the spine and pelvis. Soft tissues: Unremarkable. IMPRESSION: 1. Mild diffuse periportal edema mild hepatomegaly 2. Constipation 3. Mesenteric edema with small amount of free fluid in the pelvis 4. No acute findings in the chest Dictated and Authenticated by: Annalisa Burks MD. Ordering:DARRYN Srinivasan MD
--- NOTE | 2023-09-10 17:33 | ED.PROG_ITS ---
Date of service: 09/10/23 Time of Service: 17:33 Medical Decision Making Case was signed out to me by my colleague Dr. Francisco Bergeron. Please refer to his HPI, physical exam, assessment and plan. At time of signout we are pending CTA and repeat troponin. These have both returned, troponin normal. CTA shows no evidence of pulmonary embolism, dissection or pneumonia, mild diffuse periportal edema with mild hepatomegaly. I did discuss this with the patient, and she does state that she has been drinking a bit more alcohol than normal, which certainly may be a component of this/related to this. I have encouraged reduction of daily alcohol use. Dr. Francisco Bergeron and myself feel that this patient's symptoms are consistent with mild esophagitis and potential gastric irritation. With no evidence of dissection, PE, ACS, or other significant life-threatening etiology, I do feel that the patient is appropriate for discharge. Will recommend adding Carafate and famotidine for daily use, as well as cutting down on alcohol use. Recommend close follow-up with PCP. Discussed red flags for which to return. I have extensively reviewed the treatment plan and discharge instructions with the patient and their family. I have addressed all patient concerns at this time. The patient and family was made aware of what symptoms to monitor for that would warrant a return to the emergency department. Discussed the plan with the patient and family, they demonstrate verbal understanding and agreement with our assessment and plan at this time. The documentation in this chart was dictated using [employer] dictation software. Please excuse any dictation errors. FINDINGS: VASCULATURE: Pulmonary arteries: Normal. No pulmonary emboli. Aorta: No aortic aneurysm. No aortic dissection. Celiac trunk and mesenteric arteries: No occlusion or significant stenosis. Renal arteries: No occlusion or significant stenosis. CHEST: Lungs: Calcified granuloma right lung base. Pleural spaces: Unremarkable. No pneumothorax. No pleural effusion. Heart: Unremarkable. No cardiomegaly. No pericardial effusion. ABDOMEN AND PELVIS: Liver: Mild diffuse periportal edema. Mild hepatomegaly. Small benign cyst inferior right hepatic lobe. Gallbladder and biliary ducts: Unremarkable. No calcified stones. No ductal dilation. Pancreas: Unremarkable. No mass. No ductal dilation. Spleen: Unremarkable. No splenomegaly. Adrenal glands: Unremarkable. No mass. Kidneys and ureters: Unremarkable. No solid mass. No hydronephrosis. Stomach and bowel: Large amount of stool in the colon. Intraperitoneal space: Small amount of free fluid in the pelvis. Mild mesenteric edema. Reproductive: IUD. Lymph nodes: Unremarkable. No enlarged lymph nodes. Bones/joints: Mild degenerative arthritis in the spine and pelvis. Soft tissues: Unremarkable. IMPRESSION: 1. Mild diffuse periportal edema mild hepatomegaly 2. Constipation 3. Mesenteric edema with small amount of free fluid in the pelvis 4. No acute findings in the chest Thank you for allowing us to participate in the care of your patient. Dictated and Authenticated by: Annalisa Burks MD 09/10/2023 5:17 PM Eastern Time ([place] & [place]) Quality:SDOH Health Related Social Needs: No Data to Display Sign Out Sign Out Data: Sign Out Comment: pending second trop and CT chest abd pelv results; likely GERD/gastritis with referred pain and increased vagal tone; stable, feeling better after meds Last updated by Craig Clark MD at 09/10/23 16:37 Discharge Plan Disposition Patient Disposition: Home Condition: Good Discharge Details Clinical Impression: Chest discomfort Primary Care Provider: Marilia Ortega ED Provider: Giles Child Home Meds and New Rx's Prescriptions: New famotidine 40 mg tablet 40 mg PO DAILY Qty: 30 0RF sucralfate [Carafate] 1 gram tablet 1 g PO BID Qty: 60 0RF No Action levonorgestrel 20 mcg/24 hr (5 years) intrauterine device 1 insert IY ONCE vitamin B complex [B Complex 1] Tablet 1 tab PO DAILY Zyrtec 10 mg capsule 10 mg PO DAILY PRN Saccharomyces boulardii [Daily Probiotic (S. boulardii)] 250 mg capsule 250 mg PO BID lysine [L-Lysine] 500 mg tablet 500 mg PO DAILY calcium carbonate [Tums] 200 mg calcium (500 mg) tablet,chewable 200 mg PO QID pantoprazole [Protonix] 40 mg tablet,delayed release (DR/EC) 40 mg PO DAILY Qty: 90 3RF epinephrine 0.3 mg/0.3 mL auto-injector 0.3 ml IM Q5-15M PRN (Reason: hypersensitivity reaction) Qty: 2 4RF albuterol sulfate 90 mcg/actuation HFA aerosol inhaler 2 puff inhalation Q6H PRN (Reason: shortness of breath or wheezing) Qty: 6.7 0RF (DME) Aerochamber MV Spacer See Rx Instructions .Route Qty: 1 0RF Rx Instructions: As directed Discharge Instructions Instructions: Chest Pain, Adult ED Additional Instructions: At this time your workup, including your CAT scan images and your repeated heart markers show no signs of heart attack. 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 Please reduce the daily amount of alcohol as best you can. Please avoid spicy foods, tomato-based foods, citrus foods as this can cause irritation in your stomach which we are concerned may be a component of y our symptoms. Please take the medications as directed to help reduce the amount of irritation in your stomach. This was then sent to your pharmacy on file. If you notice any worsening of your symptoms, or any new symptoms such as vomiting, diarrhea, fever, chills, shortness of breath, chest pain, numbness, weakness, or fainting , please return immediately to the emergency department for reevaluation. Please follow up with your primary care provider as soon as possible for reassessment and reevaluation. As always, it was a pleasure participating in your medical care today. Referrals: Marilia Ortega NP [Primary Care Provider] -
== END 2023-09-10 17:40 | disposition home or self-care (01) ==
PROVIDERS: Emergency Medicine; Emergency Provider Student in an Organized Health Care Education/Training Program; PCP Nurse Practitioner Family
DX: R07.89 Other chest pain (principal); K21.9 Gastro-esophageal reflux disease without esophagitis
CPT/HCPCS: 00123; 36415; 71275; 74177; 80053; 93005; 96374; 96375; 99285; 83735; 83880; 84443; 84484; 85025; 85610; 85730; 93010; 99283; J1885; J2405; J3490

== ENCOUNTER → 2023-09-19 01:47 | Outpatient (CLI) | payer MEDICAID, SELFPAY ==
--- NOTE | 2023-09-19 06:00 | ETT_ITS ---
APPROVED REPORT Exam: Exercise Treadmill Patient Location: Out-Patient Room/Bed: Stress Nurse: Esperanza Berrios RN Ordering Provider:MARCELO COTAGANESH, Contact Number: [phone] BMI: 22.23 Baseline Rhythm: Sinus Bradycardia Indications: Chest pain Medical History Medical History: Asthma, GERD, tobacco use Cardiac Medications: Albuterol sulfate, famotidine, omeprazole, sucralafate Allergies: Erythromycin base, lates, lactose, citrus Cardiac Risk Factors: Family hx, asthma, smoker Previous Cardiac Procedures: None Pretest Chest Pain Characteristics: None Exercise History: Physically active Physical Disabilities: None Lung Sounds: Clear to auscultation Heart Sounds: Regular Stress Test Details Test: Exercise stress testing was performed using a Sven protocol. Rest Stress HR Resting HR Supine: 52 bpm Max Heart Rate (APMHR): 167 bpm Resting HR Standin bpm Target HR (85% APMHR): 142 bpm Max HR Achieved: 158 bpm % of APMHR: 95 Recovery HR: 57 bpm HR response to stress: Normal HR response to stress BP Resting BP Supine: 138/70 mmHg Resting BP Standin/73 mmHg Max BP: 190/68 mmHg Recovery BP: 130/74 mmHg BP response to stress: Normal blood pressure response to stress. ECG Resting ECG: Sinus Bradycardia Ectopy: None Stress ECG: Sinus Tachycardia ST Change: No significant ST segment changes noted Arrhythmia: Occasional PAC's, occasional PVC's Recovery ECG: Sinus Bradycardia Recovery ST Change: No significant ST segment changes noted Recovery Arrhythmia: Occasiona,l PAC's, occasional PVC's Clinical Reason for Termination: Target HR Achieved Stress Symptoms: None Exercise duration: 12 min11 sec Highest Stage Reached: Stage 4: 4.2 mph at 16% grade. Exercise capacity: 13.60 METs Angina Score: None Pugh Treadmill Score: 11.4 Rate Pressure Product: 28049 Stress ECG Conclusion 1. Resting EKG showed right axis, poor R wave progression 2. Patient exercised on the Sven protocol completed a workload of 13.6 METS 3. Normal heart rate and blood pressure response to exercise. Patient achieved 95% of predicted hear t rate for age 4. There was no electrocardiographic evidence of myocardial ischemia 5. There were no significant dysrhythmias Pugh Treadmill Score is 11.4 which is Low risk. Stress Test Summary STAGE Time (mins) Speed (mph) Grade (%) HR BP SpO2 SYMPTOMS METS Supine 52 138/70 100 Standing 52 140/68 1 3 1.7 10 87 142/73 97 4.5 2 6 2.5 12 103 160/78 98 7 3 9 3.4 14 124 180/80 10 4 12 4.2 16 154 13 1 min recovery 112 190/68 3 min recovery 64 150/70 6 min recovery 57 130/74
== END ==
PROVIDERS: PCP Nurse Practitioner Family; Visit Provider Nurse Practitioner Family
DX: R07.9 Chest pain, unspecified (principal)
CPT/HCPCS: 93017

== ENCOUNTER 2023-12-01 02:06 | Outpatient (CLI) | payer MEDICAID, SELFPAY ==
--- NOTE | 2023-12-01 09:26 | DI.MAMMO_ITS ---
Exam(s) MAMMO SCREENING EXAM: MAMMO SCREENING CLINICAL HISTORY: screening,z12.39. TECHNIQUE: Bilateral full field digital CC and MLO mammographic images were obtained with 3D tomosyn thesis and utilizing computer aided detection (CAD). COMPARISON: 2017 to 2022 FINDINGS: Masses: None seen. Architectural Distortion: None seen. Microcalcifications: No suspicious pleomorphic-type are seen. Skin Thickening/Nipple Retraction: None. IMPRESSION: 1. No significant interval change with no specific features of malignancy noted. 2. Unless there is more urgent need, annual screening mammography is recommended, as per [place] [employer] guidelines. BI-RADS Category 1-negative Breast Density - Category D - extremely dense Breast Density Category D: The mammogram demonstrates the patient's breast tissue is dense. Dense celia ast tissue is very common and is not abnormal but dense breast tissue can make it harder to find canc er on a mammogram. Also, dense breast tissue may increase their breast cancer risk. This information about the result of the mammogram report was provided to the patient to raise their awareness. Use th is report when you speak with the patient about their risks for breast cancer, which includes their f amily history. At that time, you may recommend for more screening tests (Ultrasound or MRI) as they m ight be useful based on their risk. A negative radiographic report should not delay biopsy if a dominant or clinically suspicious mass is present. Up to ten percent of cancers are not identified on mammography. A negative report may reinforce clinical impression. Adenosis and dense breasts may obscure an underlying neoplasm. False positive reports average 6 to 10%.
== END 2023-12-01 02:26 ==
LOC: DI 02:06
PROVIDERS: PCP Nurse Practitioner Family; Visit Provider Nurse Practitioner Family
DX: Z12.31 Encounter for screening mammogram for malignant neoplasm of breast (principal)
CPT/HCPCS: 77063; 77067

== ENCOUNTER 2024-03-08 01:15 | Outpatient (CLI) | payer MEDICAID, SELFPAY ==
--- NOTE | 2024-03-08 07:30 | DI.CT_ITS ---
Exam(s) CT SINUS WO EXAM: CT SINUS WO CLINICAL HISTORY: chronic sinusitis symptoms,j32.0. Evaluate for sinusitis. TECHNIQUE: Imaging Protocol: Axial computed tomography images with coronal and sagittal reformatted images were created and reviewed. COMPARISON: No exams were available for comparison FINDINGS: AXIAL IMAGES: Frontal sinuses: Normally aerated. Ethmoid air cells: There is mild mucosal thickening in the ethmoid air cells bilaterally. Maxillary sinuses: There is mild mucosal thickening in the maxillary sinuses bilaterally. No air-flu id levels are present. There is a small mucous retention cyst in the right maxillary sinus. Sphenoid sinus: There is mucosal thickening seen in the sphenoid sinuses bilaterally, right greater t fraizer left. Ostiomeatal complexes: There is obstruction of the ostiomeatal complexes bilaterally. Osseous nasal septum: The nasal septum is predominantly midline. Visualized regional soft tissues: No acute findings. Orbits: Unremarkable. Bones: Unremarkable. Mastoid Air Cells: Normally aerated. IMPRESSION: Nonu-ij-chzbshrd pansinusitis. No air-fluid levels are present. RADIATION DOSE DELIVERED: 151.98mGy.cm Total DLP 151.98mGy.cm Total DLP DATA REPOSITORY: All CT scans at this facility are submitted to the National Radiology Data Registry (NRDR) Dose Index Registry (DIR) with the [employer] ([employer]). RADIATION OPTIMIZATION: All CT scans at this facility use at least one of these dose optimization te chniques: automated exposure control; mA and/or kV adjustment per patient size (includes targeted exa ms where dose is matched to clinical indication); or iterative reconstruction.
== END 2024-03-08 01:35 ==
LOC: DI 01:15
PROVIDERS: PCP Nurse Practitioner Family; Visit Provider Family Medicine
DX: J32.0 Chronic maxillary sinusitis (principal)
CPT/HCPCS: 70486